=== PATIENT | female | born 1965 | race Caucasian/White ===

== ENCOUNTER 2019-10-22 22:58 | Emergency (ER) | payer SELFPAY ==
--- NOTE | 2019-10-22 23:29 | ER Document Report ---
ED Medical Screen (RME) - General Chief Complaint: Dizziness Stated Complaint: REPORTS LOW POTASSIUM//DIZZINESS Time Seen by Provider: 10/22/19 23:27 Primary Care Provider: FELICIA STEWART [Primary Care Provider] - Follow up as needed Mode of Arrival: Wheelchair Information source: Relative Notes: 54-year-old female presented to ED with having trouble with her words. states he just started a couple hours ago is gotten much worse. He states often it is her potassium. She states she is been out of her bed Ativan for over a month and she thinks that is what it is but states no. She does not have any facial droop or any palmar drift at this time. She is able to lift both legs which she states the right 1 is heavier. She is very anxious. She is having trouble with some of her words. I have greeted and performed a rapid initial assessment of this patient. A comprehensive ED assessment and evaluation of the patient, analysis of test results and completion of medical decision making process will be conducted by an additional ED providers. Past Medical History Musculoskeltal Medical History: Reports Hx Arthritis - Rheumatoid - Immunizations Hx Diphtheria, Pertussis, Tetanus Vaccination: Yes Doctor's Discharge - Discharge Referrals: FELICIA STEWART [Primary Care Provider] - Follow up as needed
--- NOTE | 2019-10-22 23:55 | RADIOLOGY REPORT (SQ) ---
EXAM DESCRIPTION: CT HEAD WITHOUT IV CONTRAST COMPLETED DATE/TME: 10/22/2019 23:27 CLINICAL HISTORY: 54 years, Female, Trouble with words for 2 hours stroke alert. COMPARISON: None. TECHNIQUE: 189 Images stored on PACS. All CT scanners at this facility use dose modulation, iterative reconstruction, and/or weight based dosing when appropriate to reduce radiation dose to as low as reasonably achievable (ALARA). [facility]: Dose Right [facility]: CareDose [facility]: Dose Right [facility]: Teradose 4D [facility]: [employer] LIMITATIONS: None. FINDINGS: The globes are intact. The paranasal sinuses and mastoid air cells are well aerated. No displaced or depressed skull fracture. No intra or extra-axial hemorrhage. CT is limited for evaluation of acute infarct. No CT evidence for large or territorial acute infarct. No mass. No midline shift IMPRESSION: No acute intracranial abnormality TECHNICAL DOCUMENTATION: Quality ID # 436: Final reports with documentation of one or more dose reduction techniques (e.g., Automated exposure control, adjustment of the mA and/or kV according to patient size, use of iterative reconstruction technique) copyright 2011 [employer]- All Rights Reserved
--- NOTE | 2019-10-22 23:56 | RADIOLOGY REPORT (SQ) ---
EXAM DESCRIPTION: XR CHEST 1 VIEW COMPLETED DATE/TME: 10/22/2019 23:27 CLINICAL HISTORY: 54 years, Female, Trouble with words for the hours COMPARISON: None. NUMBER OF VIEWS: 1 TECHNIQUE: Portable chest LIMITATIONS: None. FINDINGS: The heart size is normal. Atheromatous change of the thoracic aorta. Lungs clear. No pneumothorax IMPRESSION: No acute cardiopulmonary process copyright 2010 [employer]- All Rights Reserved
[2019-10-23] MEDS ORDERED: LORAZEPAM INJ 2 MG/1 ML VIAL IV ONE (00:03)
[2019-10-23] MEDS ORDERED: NORMAL SALINE 1000 ML 1,000 ML IV ONE (00:03)
--- NOTE | 2019-10-23 00:03 | ER Document Report ---
ED Dizziness/Weakness - General Chief Complaint: S/S of Possible Stroke Stated Complaint: REPORTS LOW POTASSIUM//DIZZINESS Time Seen by Provider: 10/22/19 23:27 Primary Care Provider: FELICIA STEWART [NO LOCAL MD] - Follow up as needed Mode of Arrival: Wheelchair Information source: Patient, Relative - Notes: ED Medical Screen ([place]) - General Chief Complaint: Dizziness Stated Complaint: REPORTS LOW POTASSIUM//DIZZINESS Time Seen by Provider: 10/22/19 23:27 Primary Care Provider: FELICIA STEWART [Primary Care Provider] - Follow up as needed Mode of Arrival: Wheelchair Information source: Relative Notes: 54-year-old female presented to ED with having trouble with her words. states he just started a couple hours ago is gotten much worse. He states often it is her potassium. She states she is been out of her bed Ativan for over a month and she thinks that is what it is but states no. She does not have any facial droop or any palmar drift at this time. She is able to lift both legs which she states the right 1 is heavier. She is very anxious. She is having trouble with some of her words. 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 She and are in town visiting his family here in [facility]. They are from [place] and she was originally from [place]. She has been out of her Ativan for 4 days and presents to the hotel front desk clerk with tremors and anxious ness. 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 Her advises when she gets low potassium she began to have mental problems. She is on Bumex and Lasix daily for the last 20 years". reports her symptoms have only been present for around 2 hours. Patient has exhibited some erratic behavior while in ER. She was moving her arms around like a parachute type reflex in the gurney and therefore nursing staff had to put gurney rails up. Also she was moving her wheelchair and the bathroom in a [id number] nonpurposeful motion. Patient also asked something for sleep and is quite anxious despite having 2 mg of IV Ativan. Please note in 2011 she has had an overdose as documented here at this hospital. reports she has had no sleep for several days. Around 2 weeks ago her family doctor called her in Zoloft and she is been taking that daily. #5 side effect of Zoloft is insomnia and also paresthesias anorexia anxiety agitation tremors. TRAVEL OUTSIDE OF THE U[place] IN LAST 30 DAYS: No - HPI Patient complains to provider of: Dizziness, Weakness Onset: Just prior to arrival Onset/Duration: Persistent Quality of pain: No pain Severity: Mild Pain Level: Denies Associated symptoms: Weak all over Past Medical History - General Information source: Relative - Social History Smoking Status: Unknown if Ever Smoked Cigarette use (# per day): No Chew tobacco use (# tins/day): No Smoking Education Provided: No Frequency of alcohol use: None Drug Abuse: None Lives with: Family Family History: Reviewed & Not Pertinent Patient has suicidal ideation: No Patient has homicidal ideation: No Musculoskeletal Medical History: Reports Hx Arthritis - Rheumatoid - Immunizations Hx Diphtheria, Pertussis, Tetanus Vaccination: Yes Review of Systems - Review of Systems Constitutional: See HPI, Weakness EENT: No symptoms reported Cardiovascular: No symptoms reported Respiratory: No symptoms reported Gastrointestinal: No symptoms reported Genitourinary: No symptoms reported Female Genitourinary: No symptoms reported Musculoskeletal: No symptoms reported Skin: No symptoms reported Hematologic/Lymphatic: No symptoms reported Neurological/Psychological: See HPI, Weakness, Tremor Physical Exam - Vital signs Vitals: Temp Pulse Resp BP Pulse Ox 98.8 F 103 H 20 121/88 H 96 10/22/19 23:21 10/22/19 23:21 10/22/19 23:21 10/22/19 23:21 10/22/19 23:21 Interpretation: Hypertensive, Tachycardic - HEENT Head: Normocephalic, Atraumatic Eyes: Normal Pupils: PERRL Mucous membranes: Normal Pharynx: Normal Neck: Normal - Respiratory Respiratory status: No respiratory distress Chest status: Nontender Breath sounds: Normal Chest palpation: Normal - Cardiovascular Rhythm: Tachycardia Heart sounds: Normal auscultation Murmur: No - Abdominal Inspection: Normal Distension: No distension Bowel sounds: Normal Tenderness: Nontender Organomegaly: No organomegaly - Rectal Hemorrhoids: Other - deferred - Genitourinary Bimanuel exam: Other - deferred - Back Back: Normal - Extremities General upper extremity: Normal inspection - Except for tremors non-parkinsonian General lower extremity: Normal inspection - Neurological Neuro grossly intact: Yes Cognition: Normal Orientation: AAOx4 Bennett Coma Scale Eye Opening: Spontaneous [place]wich Coma Scale Verbal: Oriented Bennett Coma Scale Motor: Obeys Commands Bennett Coma Scale Total: 15 Speech: Normal Motor strength normal: LUE, RUE, LLE, RLE Sensory: Normal - Psychological Associated symptoms: Anxious, Confused - Skin Skin Temperature: Warm Course - Vital Signs Vital signs: Temp Pulse Resp BP Pulse Ox 98.8 F 103 H 20 121/88 H 96 10/22/19 23:21 10/22/19 23:21 10/22/19 23:21 10/22/19 23:21 10/22/19 23:21 - Laboratory Result Diagrams: 10/23/19 00:35 10/23/19 00:35 Laboratory results interpreted by me: 10/23/19 10/23/19 10/23/19 00:35 00:35 00:35 RDW 14.2 H BUN 23 H Creatinine 1.41 H Est GFR ( Amer) 47 L Est GFR (MDRD) Non-Af 39 L Salicylates < 1.0 L Acetaminophen < 10 L - Diagnostic Test Radiology reviewed: Reports reviewed - CT HEAD NEG Discharge - Discharge Clinical Impression: Symptom of drug withdrawal, Psychotic episode, Question of Zoloft side effects Condition: Good Disposition: PSYCH HOSP/UNIT Referrals: LOCALMD,NO [NO LOCAL MD] - Follow up as needed
[2019-10-23 00:44] LABS: ABSOLUTE BASOPHILS # (AUTO) 0.1 10^3/uL (0.0-0.2); ABSOLUTE EOSINOPHILS # (AUTO) 0.4 10^3/uL (0.0-0.6); ABSOLUTE LYMPHOCYTES (AUTO) 1.8 10^3/uL (0.5-4.7); ABSOLUTE MONOCYTES (AUTO) 0.7 10^3/uL (0.1-1.4); ABSOLUTE NEUT (AUTO) 4.7 10^3/uL (1.7-8.2); BASOPHILS % (AUTO) 0.9 % (0-2); EOSINOPHILS % (AUTO) 4.8 % (0-6); HEMATOCRIT 36.5 % (36.0-47.0); HEMOGLOBIN 12.5 g/dL (12.0-15.5); LYMPHOCYTES % (AUTO) 23.9 % (13-45); MEAN CORPUSCULAR HEMOGLOBIN 29.8 pg (27.0-33.4); MEAN CORPUSCULAR HGB CONC 34.1 g/dL (32.0-36.0); MEAN CORPUSCULAR VOLUME 87 fl (80-97); MONOCYTES % (AUTO) 8.6 % (3-13); PLATELET COUNT 414 10^3/uL (150-450); RED BLOOD COUNT 4.18 10^6/uL (3.72-5.28); RED CELL DISTRIBUTION WIDTH 14.2 % (11.5-14.0); SEGMENTED NEUTROPHILS % (AUTO) 61.8 % (42-78); TOTAL CELLS COUNTED % (AUTO) 100 %; WHITE BLOOD COUNT 7.6 10^3/uL (4.0-10.5)
[2019-10-23 00:57] LABS: ALBUMIN 4.1 g/dL (3.5-5.0); ALKALINE PHOSPHATASE 86 U/L (38-126); ANION GAP 9 (5-19); ASPARTATE AMINO TRANSFERASE 22 U/L (14-36); BILIRUBIN,DIRECT 0.3 mg/dL (0.0-0.4); BILIRUBIN,TOTAL 0.4 mg/dL (0.2-1.3); BLOOD UREA NITROGEN 23 mg/dL (7-20); CALCIUM 9.7 mg/dL (8.4-10.2); CARBON DIOXIDE 27 mmol/L (22-30); CHLORIDE 103 mmol/L (98-107); CREATINE KINASE 135 U/L (30-135); GLUCOSE 107 mg/dL (75-110); POTASSIUM 4.4 mmol/L (3.6-5.0)
[2019-10-23 00:58] LABS: INTERNATIONAL RATION (INR) 0.88; PROTHROMBIN TIME 12.2 SEC (11.4-15.4)
[2019-10-23 00:59] LABS: PARTIAL THROMBOPLASTIN TIME 32.2 SEC (23.5-35.8)
[2019-10-23] MEDS ORDERED: HALOPERIDOL LACTATE INJ 5 MG/1 ML VIAL IV ONE (01:28)
[2019-10-23 01:43] LABS: CREATINE KINASE MB 2.63 ng/mL (<4.55)
[2019-10-23 01:44] LABS: TROPONIN I < 0.012 ng/mL
[2019-10-23 01:45] LABS: ACETAMINOPHEN < 10 ug/mL (10-30); ALCOHOL < 10 mg/dL (NONE DETECTED); SALICYLATE < 1.0 mg/dL (2.0-20.0)
[2019-10-23 02:46] LABS: THYROID STIMULATING HORMONE 4.2 uIU/mL (0.47-4.68)
[2019-10-23 02:47] LABS: FREE T4 (FREE THYROXINE) 0.94 ng/dL (0.78-2.19)
--- NOTE | 2019-10-23 06:29 | EKG REPORT ---
SEVERITY:- ABNORMAL ECG - SINUS RHYTHM LEFT VENTRICULAR HYPERTROPHY NONSPECIFIC ST-T CHANGES- INFERIOR LEADS : Confirmed by: Federico Keen MD 23-Oct-2019 06:29:28
[2019-10-23 09:54] LABS: APPEARANCE,URINE CLEAR; BILIRUBIN,URINE NEGATIVE (NEGATIVE); COLOR,URINE YELLOW; GLUCOSE, URINE NEGATIVE (NEGATIVE); KETONES,URINE NEGATIVE (NEGATIVE); LEUKOCYTE ESTERASE,URINE SMALL (NEGATIVE); NITRITE,URINE NEGATIVE (NEGATIVE); PROTEIN,URINE NEGATIVE (NEGATIVE); URINE SPECIFIC GRAVITY 1.012; UROBILINOGEN,URINE NEGATIVE mg/dL (<2.0)
[2019-10-23 10:12] LABS: URINE AMPHETAMINES SCREEN NEGATIVE; URINE BARBITURATES SCREEN NEGATIVE; URINE BENZODIAZEPINES SCREEN NEGATIVE; URINE COCAINE SCREEN NEGATIVE; URINE MARIJUANA (THC) SCREEN NEGATIVE; URINE METHADONE SCREEN NEGATIVE; URINE PHENCYCLIDINE SCREEN NEGATIVE
--- NOTE | 2019-10-23 10:30 | PSYCHOLOGICAL NOTE ---
Psych Note - Psych Note Date seen by psych provider: 10/23/19 Time seen by psych provider: 10:20 Psych Note: Reason for Consult: AMS Impression/Plan: Patient is cleared from acute psychiatric services.
[2019-10-23 10:56] VITALS: BP 108/60
== END 2019-10-23 10:56 | disposition home or self-care (01) ==
LOC: ER 22:58
DX: F23 Brief psychotic disorder (principal); F19.939 Other psychoactive substance use, unspecified with withdrawal, unspecified; R42 Dizziness and giddiness; E87.6 Hypokalemia
CPT/HCPCS: 93005; 99285; 96361; 96374; 96375; 36415; 84439; 82553; 82962; 80307 ×4; 82550; 83735; 84443; 85025; 85610; 85730; 80053; 81001; 84484; 71045; 70450; 93010; J1630; J2060; J7030

== ENCOUNTER 2019-11-27 16:33 | Emergency (ER) | payer SELFPAY ==
--- NOTE | 2019-11-27 17:37 | ER Document Report ---
ED Medical Screen (RME) - General Chief Complaint: Altered Mental Status Stated Complaint: CONFUSION Time Seen by Provider: 11/27/19 17:19 TRAVEL OUTSIDE OF THE U.S. IN LAST 30 DAYS: No - HPI Notes: 11/27/19 17:33 54-year-old female presents to the emergency room with her for is concerned of patient having issues with repeating herself, stuttering, ataxic gait that started last night. states that patient states she last for hours of time cannot recall. 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 Patient is unsure of what medications she is on, she recently moved here 2 months ago and she has not been established with a primary care provider. She stated that when her potassium gets low that sometimes she gets shaky. Patient overall is a poor historian and the was not sure what her medical history was but just that she has been acting different since last night and he is concerned today. I have greeted and performed a rapid initial assessment of this patient. A comprehensive ED assessment and evaluation of the patient, analysis of test results and completion of the medical decision making process will be conducted by additional ED providers. PHYSICAL EXAMINATION: GENERAL: Well-appearing, well-nourished and in no acute distress. HEAD: Atraumatic, normocephalic. EYES: Pupils equal round extraocular movements intact, conjunctiva are normal. NECK: Normal range of motion CV: s1, s2 regular LUNGS: No respiratory distress Musculoskeletal: Normal range of motion NEUROLOGICAL: slurred speech at times, ataxic gait. PERRLA, EOMI. Full motor and sensory function throughout. 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 Unable to understand how to make her tongue midline. Neck with APROM. Raises eyebrows only with encouragement. No weakness on one side. Patient appears to be very confused but with time was able to tell me the month, the year, the president, the season. SKIN: Warm, Dry, normal turgor, no rashes or lesions noted. Past Medical History Musculoskeltal Medical History: Reports Hx Arthritis - Rheumatoid - Immunizations Hx Diphtheria, Pertussis, Tetanus Vaccination: Yes Physical Exam - Vital signs Vitals: Temp Pulse Resp BP Pulse Ox 98.3 F 88 16 142/91 H 98 11/27/19 16:39 11/27/19 16:39 11/27/19 16:39 11/27/19 16:39 11/27/19 16:39 Course - Vital Signs Vital signs: Temp Pulse Resp BP Pulse Ox 98.3 F 88 16 142/91 H 98 11/27/19 16:39 11/27/19 16:39 11/27/19 16:39 11/27/19 16:39 11/27/19 16:39
--- NOTE | 2019-11-27 17:48 | RADIOLOGY REPORT (SQ) ---
EXAM DESCRIPTION: CHEST SINGLE VIEW IMAGES COMPLETED DATE/TIME: 11/27/2019 5:40 pm REASON FOR STUDY: AMS COMPARISON: 10/22/2019. EXAM PARAMETERS: NUMBER OF VIEWS: One view. TECHNIQUE: Single frontal radiographic view of the chest acquired. RADIATION DOSE: NA LIMITATIONS: None. FINDINGS: LUNGS AND PLEURA: No opacities, masses or pneumothorax. No pleural effusion. MEDIASTINUM AND HILAR STRUCTURES: No masses. Contour normal. HEART AND VASCULAR STRUCTURES: Heart normal in size. Normal vasculature. BONES: No acute findings. HARDWARE: None in the chest. OTHER: No other significant finding. IMPRESSION: 1. NO ACUTE RADIOGRAPHIC FINDING IN THE CHEST. TECHNICAL DOCUMENTATION: JOB ID: [id number] 2010 [employer])- All Rights Reserved Reading location - IP/workstation name: [email or web address]
--- NOTE | 2019-11-27 18:01 | RADIOLOGY REPORT (SQ) ---
EXAM DESCRIPTION: CT HEAD WITHOUT IMAGES COMPLETED DATE/TIME: 11/27/2019 5:45 pm REASON FOR STUDY: AMS COMPARISON: 10/22/2019 TECHNIQUE: Axial images acquired through the brain without intravenous contrast. Images reviewed wit h bone, brain and subdural windows. Images stored on PACS. All CT scanners at this facility use dose modulation, iterative reconstruction, and/or weight based d osing when appropriate to reduce radiation dose to as low as reasonably achievable (ALARA). [facility]: Dose Right [facility]: CareDose [facility]: Dose Right [facility]: Teradose 4D [facility]: Smart [employer] RADIATION DOSE: CT Rad equipment meets quality standard of care and radiation dose reduction techniq ues were employed. CTDIvol: 53.2 mGy. DLP: 964 mGy-cm.. LIMITATIONS: None. FINDINGS: VENTRICLES: Normal size and contour. CEREBRUM: No masses. No hemorrhage. No midline shift. Age appropriate white matter. No evidence for a cute infarction. CEREBELLUM: No masses. No hemorrhage. No alteration of density. No evidence for acute infarction. EXTRA-AXIAL SPACES: No fluid collections. ORBITS AND GLOBE: No intra- or extraconal masses. Normal contour of globe without masses. CALVARIUM: No fracture. PARANASAL SINUSES: No fluid or mucosal thickening. SOFT TISSUES: No mass or hematoma. OTHER: No other significant finding. IMPRESSION: NO ACUTE INTRACRANIAL FINDINGS. EVIDENCE OF ACUTE STROKE: NO. TECHNICAL DOCUMENTATION: JOB ID: [id number] [place]-72 Quality ID # 436: Final reports with documentation of one or more dose reduction techniques (e.g., Au tomated exposure control, adjustment of the mA and/or kV according to patient size, use of iterative reconstruction technique) 2010 [employer]- All Rights Reserved Reading location - IP/workstation name: [email or web address]
[2019-11-27 18:03] LABS: ABSOLUTE BASOPHILS # (AUTO) 0.1 10^3/uL (0.0-0.2); ABSOLUTE EOSINOPHILS # (AUTO) 0.1 10^3/uL (0.0-0.6); ABSOLUTE LYMPHOCYTES (AUTO) 1.8 10^3/uL (0.5-4.7); ABSOLUTE MONOCYTES (AUTO) 0.6 10^3/uL (0.1-1.4); ABSOLUTE NEUT (AUTO) 5.6 10^3/uL (1.7-8.2); EOSINOPHILS % (AUTO) 1.4 % (0-6); HEMATOCRIT 38.7 % (36.0-47.0); HEMOGLOBIN 13.2 g/dL (12.0-15.5); LYMPHOCYTES % (AUTO) 21.5 % (13-45); MEAN CORPUSCULAR HGB CONC 34.1 g/dL (32.0-36.0); MEAN CORPUSCULAR VOLUME 88 fl (80-97); MONOCYTES % (AUTO) 7.8 % (3-13); PLATELET COUNT 449 10^3/uL (150-450); RED CELL DISTRIBUTION WIDTH 14.9 % (11.5-14.0); SEGMENTED NEUTROPHILS % (AUTO) 68.3 % (42-78); TOTAL CELLS COUNTED % (AUTO) 100 %; WHITE BLOOD COUNT 8.2 10^3/uL (4.0-10.5)
[2019-11-27 18:07] LABS: INTERNATIONAL RATION (INR) 0.99; PROTHROMBIN TIME 13.3 SEC (11.4-15.4)
[2019-11-27 18:17] LABS: ALBUMIN 4.6 g/dL (3.5-5.0); ALKALINE PHOSPHATASE 80 U/L (38-126); ANION GAP 10 (5-19); ASPARTATE AMINO TRANSFERASE 35 U/L (14-36); BILIRUBIN,DIRECT 0.3 mg/dL (0.0-0.4); BILIRUBIN,TOTAL 0.7 mg/dL (0.2-1.3); BLOOD UREA NITROGEN 25 mg/dL (7-20); CALCIUM 10.5 mg/dL (8.4-10.2); CARBON DIOXIDE 30 mmol/L (22-30); CHLORIDE 100 mmol/L (98-107); GLUCOSE 107 mg/dL (75-110); POTASSIUM 4.6 mmol/L (3.6-5.0); TOTAL PROTEIN 7.7 g/dL (6.3-8.2)
[2019-11-27] MEDS ORDERED: NORMAL SALINE 1000 ML 1,000 ML IV ONE (18:38)
--- NOTE | 2019-11-27 18:41 | ER Document Report ---
Entered by PRITESH ERICKSON SCRIBE 11/27/19 1836 Acting as scribe for:ANTONETTE WATSON DO ED General - General Chief Complaint: Altered Mental Status Stated Complaint: CONFUSION Time Seen by Provider: 11/27/19 17:19 Information source: Patient, Relative Notes: This 54 year old female patient presents to the emergency department today with complaints of "not fluent speech pattern, chopping off words" since earlier this morning. at bedside states that he noticed this "a little bit" this morning but it "got worse and worse" as the day went on. It sounds like the patient has had similar symptoms in the past and it was related to Neurontin and it antidepressant which she cannot remember. According to [facility] the patient currently takes buspirone 5 mg twice daily, Chloreon 20 mEq 1 tab twice daily, bumetanide 2 mg daily, phentaramine 37.5 mg daily, gabapentin 600 mg twice daily, furosemide 40 mg twice daily, Ambien 5 mg nightly as needed, lorazepam 1 mg twice daily as needed, lovastatin 20 mg daily, levothyroxine 100 mEq daily. TRAVEL OUTSIDE OF THE [place].S. IN LAST 30 DAYS: No Past Medical History - General Information source: Patient, Relative - Social History Smoking Status: Unknown if Ever Smoked Family History: Reviewed & Not Pertinent - Past Medical History Cardiac Medical History: Reports: Hx Congestive Heart Failure, Hx Hypercholesterolemia Musculoskeletal Medical History: Reports Hx Arthritis - Rheumatoid Psychiatric Medical History: Reports: Hx Anxiety, Hx Depression Surgical Hx: Negative - Immunizations Hx Diphtheria, Pertussis, Tetanus Vaccination: Yes Review of Systems - Review of Systems Constitutional: No symptoms reported EENT: No symptoms reported Cardiovascular: No symptoms reported Respiratory: No symptoms reported Gastrointestinal: No symptoms reported Genitourinary: No symptoms reported Female Genitourinary: No symptoms reported Musculoskeletal: No symptoms reported Skin: No symptoms reported Hematologic/Lymphatic: No symptoms reported Neurological/Psychological: See HPI, Speech impairment -: Yes All other systems reviewed and negative Physical Exam - Vital signs Vitals: Temp Pulse Resp BP Pulse Ox 98.3 F 88 16 142/91 H 98 11/27/19 16:39 11/27/19 16:39 11/27/19 16:39 11/27/19 16:39 11/27/19 16:39 - Notes Notes: Physical Exam: General: Alert, appears well. HEENT: Normocephalic. Atraumatic. PERRL. Extraocular movements intact. Oropharynx clear. Neck: Supple. Non-tender. Respiratory: No respiratory distress. Clear and equal breath sounds bilaterally. Cardiovascular: Regular rate and rhythm. Abdominal: Normal Inspection. Non-tender. No distension. Normal Bowel Sounds. Back: No gross abnormalities. Extremities: Moves all four extremities. Upper extremities: Normal inspection. Normal ROM. Lower extremities: Normal inspection. No edema. Normal ROM. Neurological: Normal cognition. AAOx4. Odd speech pattern. Slow and deliberate, slow to respond. Speech is very choppy Psychological: Normal affect. Normal Mood. Skin: Warm. Dry. Normal color. Course - Re-evaluation Re-evalutation: 11/27/19 20:24 MDM 54 year old female with acute encephalopathy here. I believe this to be medicine related. She has ambien, buspar and ativan on her medicine list from [facility]. She lives at home with her and she is comfortable and he is comfortable with this. She can ambulate here without difficulty and her speech is improved. Initially she had confusion and fragmented speech and was slow to respond to questions. Her alertness and speech pattern is now much improved. Additionally, although there is a h/o depression, anxiety and poor sleeping, she demonstrates some insight and no acute psychosis. She has capacity, in my opinion and is safe for outpt follow up. She denies SI or HI and the agrees with this. We will adjust her medicines here and have psychiatry help with follow up. She should be off of work the next few nights. We will provide a work note for this. 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 Will provide with resourses for follow up with psychiatry. - Vital Signs Vital signs: Temp Pulse Resp BP Pulse Ox 98.4 F 73 25 H 115/85 100 11/27/19 18:02 11/27/19 18:02 11/27/19 19:00 11/27/19 18:46 11/27/19 19:00 - Laboratory Result Diagrams: 11/27/19 17:52 11/27/19 17:52 Laboratory results interpreted by me: 11/27/19 11/27/19 11/27/19 17:52 17:52 17:52 RDW 14.9 H BUN 25 H Creatinine 1.40 H Est GFR ( Amer) 48 L Est GFR (MDRD) Non-Af 39 L Calcium 10.5 H TSH 5.94 H Ur Leukocyte Esterase Urine Ascorbic Acid 11/27/19 18:50 RDW BUN Creatinine Est GFR ( Amer) Est GFR (MDRD) Non-Af Calcium TSH Ur Leukocyte Esterase LARGE H Urine Ascorbic Acid 40 H - Diagnostic Test Radiology reviewed: Reports reviewed - EKG Interpretation by Me EKG shows normal: Sinus rhythm Rate: Normal Rhythm: NSR [place]/QRS: Left axis deviation - NSR Left axis [address] elevation or depression my interpretation. Discharge - Discharge Clinical Impression: Sedative toxicity Qualifiers: Encounter type: initial encounter Injury intent: accidental or unintentional Qualified Code(s): T42.71XA - Poisoning by unspecified antiepileptic and sedative-hypnotic drugs, accidental (unintentional), initial encounter UTI (urinary tract infection) Qualifiers: Urinary tract infection type: site unspecified Hematuria presence: without hematuria Qualified Code(s): N39.0 - Urinary tract infection, site not specified Condition: Stable Disposition: HOME, SELF-CARE Instructions: Cephalexin ([facility]), Urinary Tract Infection ([facility]), Family Physicians / Practices Additional Instructions: Rest, fluids, medicines as directed. Call the Psychiatry team here if you do not here from them by 3 pm tomorrow. Stop the ambien (zolpidem). If you have thoughts of self harm call 911 or return here. Please return here for chest pain, shortness of breath increased confusion or other problems or concerns. Forms: Return to Work Referrals: FRANCISCA AGUIRRE PSYD [ALLIED HEALTH PROFESSIONAL] - 11/28/19 I personally performed the services described in the documentation, reviewed and edited the documentation which was dictated to the scribe in my presence, and it accurately records my words and actions.
[2019-11-27 19:37] LABS: APPEARANCE,URINE SLIGHTLY-CLOUDY; BILIRUBIN,URINE NEGATIVE (NEGATIVE); COLOR,URINE YELLOW; GLUCOSE, URINE NEGATIVE (NEGATIVE); KETONES,URINE NEGATIVE (NEGATIVE); LEUKOCYTE ESTERASE,URINE LARGE (NEGATIVE); NITRITE,URINE NEGATIVE (NEGATIVE); PROTEIN,URINE NEGATIVE (NEGATIVE); URINE SPECIFIC GRAVITY 1.011; UROBILINOGEN,URINE NEGATIVE mg/dL (<2.0)
[2019-11-27 19:48] LABS: URINE AMPHETAMINES SCREEN NEGATIVE; URINE BARBITURATES SCREEN NEGATIVE; URINE BENZODIAZEPINES SCREEN NEGATIVE; URINE COCAINE SCREEN NEGATIVE; URINE MARIJUANA (THC) SCREEN NEGATIVE; URINE METHADONE SCREEN NEGATIVE; URINE PHENCYCLIDINE SCREEN NEGATIVE
[2019-11-27] MEDS ORDERED: CEFTRIAXONE 1 GM/D5W RTU 1 GM/50 ML RTUPB IV ONE (20:01)
[2019-11-27 21:36] VITALS: BP 122/81
--- NOTE | 2019-11-28 15:18 | EKG REPORT ---
SEVERITY:- ABNORMAL ECG - SINUS RHYTHM LEFT VENTRICULAR HYPERTROPHY : Confirmed by: Lakeisha Torres MD 28-Nov-2019 15:16:55
== END 2019-11-27 21:36 | disposition home or self-care (01) ==
LOC: ER 16:33
DX: N39.0 Urinary tract infection, site not specified (principal); T42.71XA Poisoning by unspecified antiepileptic and sedative-hypnotic drugs, accidental (unintentional), initial encounter; X58.XXXA Exposure to other specified factors, initial encounter; R41.82 Altered mental status, unspecified; I50.9 Heart failure, unspecified; E78.00 Pure hypercholesterolemia, unspecified
CPT/HCPCS: 93005; 99285; 96361; 96374; 36415; 80307 ×2; 84443; 85025; 85610; 80053; 81001; 84484; 71045; 70450; 93010; J7030; J0696; 82962